=== PATIENT | female | born 1940 | race Caucasian/White ===

== ENCOUNTER 2018-07-07 00:04 | Emergency (ER) | payer MEDICARE ==
[2018-07-07 00:15] VITALS: BP 136/97
--- NOTE | 2018-07-07 00:24 | EDM.PDOC ---
ED HPI GENERAL MEDICAL PROBLEM - General Chief Complaint: Gastrointestinal Problem Stated Complaint: POSSIBLE RECTAL BLEEDING Time Seen by Provider: 07/07/18 01:00 - History of Present Illness INITIAL COMMENTS - FREE TEXT/NARRATIVE: HISTORY AND PHYSICAL: History of present illness: Patient is 77-year-old white female presents with rectal bleeding she's had this problem intermittently in the past and does have history of hemorrhoids. She states this was more in the last 24 hours she denies dizziness chest pain shortness of breath or other concern Review of systems: As per history of present illness and below otherwise all systems reviewed and negative. Past medical history: As per history of present illness and as reviewed below otherwise noncontributory. Surgical history: As per history of present illness and as reviewed below otherwise noncontributory. Social history: No reported history of drug or alcohol abuse. Family history: As per history of present illness and as reviewed below otherwise noncontributory. Physical exam: HEENT: Atraumatic, normocephalic, pupils reactive, negative for conjunctival pallor or scleral icterus, mucous membranes moist, throat clear, neck supple, nontender, trachea midline. Lungs: Clear to auscultation, breath sounds equal bilaterally, chest nontender. Heart: S1S2, regular, negative for clicks, rubs, or JVD. Abdomen: Soft, nondistended, nontender. Negative for masses or hepatosplenomegaly. Negative for costovertebral tenderness. Pelvis: Stable nontender. Genitourinary: Deferred. Rectal: fairly large external hemorrhoids with erythema and evidence of recent bleedingExtremities: Atraumatic, negative for cords or calf pain. Neurovascular unremarkable. Neuro: Awake, alert, oriented. Cranial nerves II through XII unremarkable. Cerebellum unremarkable. Motor and sensory unremarkable throughout. Exam nonfocal. Diagnostics: CBC CMP PT/INR CT abdomen and pelvis Therapeutics: None Impression: #1 rectal bleeding #2 hemorrhoids Definitive disposition and diagnosis as appropriate pending reevaluation and review of above. abdominal Pain Score (Numeric/FACES): 2 - Related Data Allergies Allergy/AdvReac Type Severity Reaction Status Date / Time iodine Allergy Rash Verified 07/07/18 00:15 Sulfa (Sulfonamide Allergy Rash Verified 07/07/18 00:15 Antibiotics) Home Meds: Home Meds Metoprolol Tartrate 100 mg PO BID 11/24/15 [History] Multivit-Min/FA/Lycopene/Lut [Centrum Silver Tablet] 1 each PO DAILY 11/24/15 [ History] metOLazone [Metolazone] 5 mg PO DAILY 11/24/15 [History] Acetaminophen [Masophen] 1,000 mg PO Q6HR PRN 07/07/18 [History] Calcium Carbonate [Calcium] 600 mg PO DAILY 07/07/18 [History] Clopidogrel [Plavix] 75 mg PO DAILY 07/07/18 [History] Losartan [Cozaar] 100 mg PO DAILY 07/07/18 [History] Melatonin 10 mg PO BEDTIME PRN 07/07/18 [History] Pantoprazole [ProTONIX] 40 mg PO DAILY 07/07/18 [History] Simvastatin [Zocor] 40 mg PO BEDTIME 07/07/18 [History] Past Medical History HEENT History: Reports: Impaired Vision, Other (See Below) Other HEENT History: wears eyeglasses Cardiovascular History: Reports: High Cholesterol, Hypertension Gastrointestinal History: Reports: None Genitourinary History: Reports: None 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: Musculoskeletal History: Reports: Osteoarthritis, Other (See Below) Other Musculoskeletal History: fx pelvis, no surgery done Neurological History: Reports: Brain Injury, Other (See Below) Other Neuro History: stroke in 2010 - Past Surgical History HEENT Surgical History: Reports: Adenoidectomy, Tonsillectomy Cardiovascular Surgical History: Reports: None GI Surgical History: Reports: Appendectomy, Cholecystectomy Female Surgical History: Reports: Hysterectomy Neurological Surgical History: Reports: None Musculoskeletal Surgical History: Reports: None Social & Family History - Family History Family Medical History: Noncontributory - Tobacco Use Smoking Status *Q: Never Smoker Second Hand Smoke Exposure: No - Caffeine Use Caffeine Use: Reports: Coffee - Recreational Drug Use Recreational Drug Use: No ED ROS GENERAL - Review of Systems Review Of Systems: ROS reveals no pertinent complaints other than HPI. ED EXAM, GENERAL - Physical Exam Exam: See Below (See dictation) Course - Vital Signs Last Recorded V/S: Last Vital Signs Temp 36.4 C 07/07/18 00:07 Pulse 76 07/07/18 00:07 Resp 20 07/07/18 00:07 BP 136/97 H 07/07/18 00:07 Pulse Ox 95 07/07/18 00:07 - Orders/Labs/Meds Labs: Laboratory Tests 07/07/18 07/07/18 07/07/18 Range/Units 00:18 00:18 00:18 WBC 5.77 (4.0-11.0) K/uL RBC 3.98 L (4.30-5.90) M/uL Hgb 11.2 L (12.0-16.0) g/dL Hct 33.8 L (36.0-46.0) % MCV 84.9 (80.0-98.0) fL MCH 28.1 (27.0-32.0) pg MCHC 33.1 (31.0-37.0) g/dL RDW Std Deviation 42.3 (28.0-62.0) fl RDW Coeff of Racquel 14 (11.0-15.0) % Plt Count 223 (150-400) K/uL MPV 8.50 (7.40-12.00) fL Neut % (Auto) 64.3 (48.0-80.0) % Lymph % (Auto) 25.8 (16.0-40.0) % Imperial % (Auto) 8.0 (0.0-15.0) % Eos % (Auto) 1.7 (0.0-7.0) % Baso % (Auto) 0.2 (0.0-1.5) % Neut # (Auto) 3.7 (1.4-5.7) K/uL Lymph # (Auto) 1.5 (0.6-2.4) K/uL Imperial # (Auto) 0.5 (0.0-0.8) K/uL Eos # (Auto) 0.1 (0.0-0.7) K/uL Baso # (Auto) 0.0 (0.0-0.1) K/uL Nucleated RBC % 0.0 /100WBC Nucleated RBCs # 0 K/uL INR 0.96 Sodium 138 (136-145) mmol/L Potassium 3.4 L (3.5-5.1) mmol/L Chloride 98 (98-107) mmol/L Carbon Dioxide 30.2 (21.0-32.0) mmol/L BUN 12 (7.0-18.0) mg/dL Creatinine 1.2 H (0.6-1.0) mg/dL Est Cr Clr Drug Dosing 32.83 mL/min Estimated GFR (MDRD) 43.3 ml/min Glucose 145 H (74-106) mg/dL Calcium 8.6 (8.5-10.1) mg/dL Total Bilirubin 0.3 (0.2-1.0) mg/dL AST 11 L (15-37) IU/L ALT 14 (14-63) IU/L Alkaline Phosphatase 74 (46-116) U/L Total Protein 7.0 (6.4-8.2) g/dL Albumin 3.5 (3.4-5.0) g/dL Globulin 3.5 (2.6-4.0) g/dL Albumin/Globulin Ratio 1.0 (0.9-1.6) Meds: Medications Discontinued Medications Generic Name Dose Route Start Last Admin Trade Name Freq PRN Reason Stop Dose Admin Hydrocortisone 30 gm 07/07/18 01:27 07/07/18 01:28 Proctozone-Hc 2.5% [facility] 07/07/18 01:28 30 gm ONETIME ONE Administration Departure - Departure Time of Disposition: 00:23 Disposition: Home, Self-Care 01 Condition: Good Clinical Impression: Rectal bleeding, Hemorrhoids - Discharge Information Instructions: Hemorrhoids, [id number], Rectal Bleeding, [id number] Referrals: PCP,None [Primary Care Provider] - Forms: ED Department Discharge Additional Instructions: The following information is given to patients seen in the emergency department who are being discharged to home. This information is to outline your options for follow-up care. We provide all patients seen in our emergency department with a follow-up referral. The need for follow-up, as well as the timing and circumstances, are variable depending upon the specifics of your emergency department visit. If you don't have a primary care physician on staff, we will provide you with a referral. We always advise you to contact your personal physician following an emergency department visit to inform them of the circumstance of the visit and for follow-up with them and/or the need for any referrals to a consulting specialist. The emergency department will also refer you to a specialist when appropriate. This referral assures that you have the opportunity for followup care with a specialist. All of these measure are taken in an effort to provide you with optimal care, which includes your followup. Under all circumstances we always encourage you to contact your private physician who remains a resource for coordinating your care. When calling for followup care, please make the office aware that this follow-up is from your recent emergency room visit. If for any reason you are refused follow-up, please contact the [facility] emergency department at and asked to speak to the emergency department charge nurse. [facility] - General Surgery Professional Building [address] [place] [address], [address] [place] [address] Anusol HC suppositories and ointment as directed: Schedule appointment with general surgery and private medical doctor return as needed as discussed
[2018-07-07] MEDS ORDERED: Hydrocortisone 2.5% Crm 30 GM Tube TOP STA (01:09)
--- NOTE | 2018-07-07 01:14 | CT ---
Indication: Rectal bleeding. Technique: Multiple contiguous axial images were obtained from the lung bases through the symphysis pubis without intravenous contrast enhancement. Please note that all CT scans at this facility use dose modulation, iterative reconstruction, and/or weight-based dosing when appropriate to reduce radiation dose to as low as reasonably achievable. Comparison: None Findings: The lung bases are clear. The heart is normal in size. Coronary artery calcifications are identified. The unenhanced liver, spleen, pancreas, adrenals, and kidneys are normal. No intrahepatic biliary ductal dilatation is identified. A right renal cyst is identified. Postsurgical changes of cholecystectomy are identified. In the pelvis, the urinary bladder is grossly normal. No uterus is identified. The small and large bowel are normal in caliber. Immediately posterior to the stomach, at the level just inferior to the left hemidiaphragm, and air-filled structure is identified. This is best seen on images number [id number], series 201, and 67-74, coronal series 203. This is felt to most likely represent a gastric diverticulum. However, other etiologies cannot be completely excluded. If the patient has clinical symptoms in the left upper quadrant, then it may be of benefit to have the patient drink oral contrast and repeat a CT scan of the upper abdomen. No free air or free fluid is identified within the abdomen or pelvis. Degenerative changes of the spine are seen. No lytic or blastic lesions are identified. Impression: Air-filled structure identified immediately adjacent to the stomach posteriorly. This may represent a gastric diverticulum. If further evaluation is warranted, consideration could be given to having the patient ingested oral contrast and then after repeat the CT scan of the upper abdomen. These findings were discussed with Dr. Alford at the time of this dictation. Please note that all CT scans at this facility use dose modulation, iterative reconstruction, and/or weight-based dosing when appropriate to reduce radiation dose to as low as reasonably achievable. Dictated by Martha Barnett MD @ Jul 07 2018 12:54AM Signed by Dr. Martha Barnett @ Jul 07 2018 1:13AM
[2018-07-07] MEDS ORDERED: Hydrocortisone 2.5% Crm 30 GM Tube TOP ONE (01:27)
== END 2018-07-07 02:00 | disposition home or self-care (01) ==
LOC: MW.ED 00:04
DX: K64.9 Unspecified hemorrhoids (principal); K62.5 Hemorrhage of anus and rectum; E78.00 Pure hypercholesterolemia, unspecified; I10 Essential (primary) hypertension; Z88.2 Allergy status to sulfonamides; Z79.899 Other long term (current) drug therapy
CPT/HCPCS: 36415; 74176; 80053; 85025; 85610; 99284; A9270; 99283

== ENCOUNTER 2018-10-29 01:46 | Emergency (ER) | payer MEDICARE ==
[2018-10-29] MEDS ORDERED: LORazepam 2 MG/ML SDV IVPUSH ONE (01:52)
[2018-10-29] MEDS ORDERED: Aspirin 81 MG Tab.Chew PO ONE (01:52)
--- NOTE | 2018-10-29 01:55 | EDM.PDOC ---
ED HPI GENERAL MEDICAL PROBLEM - General Stated Complaint: TROUBLE BREATHING Time Seen by Provider: 10/29/18 01:54 Source of Information: Reports: Patient - History of Present Illness INITIAL COMMENTS - FREE TEXT/NARRATIVE: HISTORY AND PHYSICAL: History of present illness: [Patient with anxiety and panic history presents with anxiety and panic, her main complaint is throat closing sensation however her airway is completely open his no lip swelling tongue swelling or pharyngeal edema no stridor breathing is nonlabored she appears quite comfortable S whatsoever not associated with diaphoresis visible shortness of breath accessory muscle usage like no pain no radiation arm neck or jaw ] Review of systems: As per history of present illness and below otherwise all systems reviewed and negative. Past medical history: As per history of present illness and as reviewed below otherwise noncontributory. Surgical history: As per history of present illness and as reviewed below otherwise noncontributory. Social history: No reported history of drug or alcohol abuse. Family history: As per history of present illness and as reviewed below otherwise noncontributory. Physical exam: HEENT: Atraumatic, normocephalic, pupils reactive, negative for conjunctival pallor or scleral icterus, mucous membranes moist, throat clear, neck supple, nontender, trachea midline. Lungs: Clear to auscultation, breath sounds equal bilaterally, chest nontender. Heart: S1S2, regular, negative for clicks, rubs, or JVD. Abdomen: Soft, nondistended, nontender. Negative for masses or hepatosplenomegaly. Negative for costovertebral tenderness. Pelvis: Stable nontender. Genitourinary: Deferred. Rectal: Deferred. Extremities: Atraumatic, negative for cords or calf pain. Neurovascular unremarkable. Neuro: Awake, alert, oriented. Cranial nerves II through XII unremarkable. Cerebellum unremarkable. Motor and sensory unremarkable throughout. Exam nonfocal. Diagnostics: [CBC CMP UA INR troponin CPK EKG Chest 1 view ] Therapeutics: [ aspirin 324 mg chewable Ativan 0.5 mg IV Ativan 0.5 mg by mouth twice a day #10 no refill Patient offered observation admission But refused ] Impression: [ anxiety/panic ] Definitive disposition and diagnosis as appropriate pending reevaluation and review of above. headache-sinus Pain Score (Numeric/FACES): 4 - Related Data Allergies Allergy/AdvReac Type Severity Reaction Status Date / Time iodine Allergy Rash Verified 07/07/18 00:15 Sulfa (Sulfonamide Allergy Rash Verified 07/07/18 00:15 Antibiotics) Home Meds: Home Meds Metoprolol Tartrate 100 mg PO BID 11/24/15 [History] Multivit-Min/FA/Lycopene/Lut [Centrum Silver Tablet] 1 each PO DAILY 11/24/15 [ History] metOLazone [Metolazone] 5 mg PO DAILY 11/24/15 [History] Acetaminophen [Masophen] 1,000 mg PO Q6HR PRN 07/07/18 [History] Calcium Carbonate [Calcium] 600 mg PO DAILY 07/07/18 [History] Clopidogrel [Plavix] 75 mg PO DAILY 07/07/18 [History] Losartan [Cozaar] 100 mg PO DAILY 07/07/18 [History] Melatonin 10 mg PO BEDTIME PRN 07/07/18 [History] Pantoprazole [ProTONIX] 40 mg PO DAILY 07/07/18 [History] Simvastatin [Zocor] 40 mg PO BEDTIME 07/07/18 [History] hydrOXYzine pamoate [Hydroxyzine Pamoate] 25 mg PO ASDIRECTED PRN 10/29/18 [ History] Past Medical History HEENT History: Reports: Impaired Vision, Other (See Below) Other HEENT History: wears eyeglasses Cardiovascular History: Reports: High Cholesterol, Hypertension Gastrointestinal History: Reports: None Genitourinary History: Reports: None 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: Musculoskeletal History: Reports: Osteoarthritis, Other (See Below) Other Musculoskeletal History: fx pelvis, no surgery done Neurological History: Reports: Brain Injury, Other (See Below) Other Neuro History: stroke in 2010 - Past Surgical History HEENT Surgical History: Reports: Adenoidectomy, Tonsillectomy Cardiovascular Surgical History: Reports: None GI Surgical History: Reports: Appendectomy, Cholecystectomy Female Surgical History: Reports: Hysterectomy Neurological Surgical History: Reports: None Musculoskeletal Surgical History: Reports: None Social & Family History - Family History Family Medical History: Noncontributory - Caffeine Use Caffeine Use: Reports: Coffee ED ROS GENERAL - Review of Systems Review Of Systems: See Below ED EXAM, GENERAL - Physical Exam Exam: See Below Course - Vital Signs Last Recorded V/S: Last Vital Signs Temp 96.6 F 10/29/18 01:54 Pulse 59 L 10/29/18 02:38 Resp 14 10/29/18 02:38 BP 156/73 H 10/29/18 02:38 Pulse Ox 96 10/29/18 02:38 - Orders/Labs/Meds Orders: Active Orders 24 hr Category Date Time Status EKG Documentation Completion [RC] AM Care 10/29/18 01:52 Active UA RFX STEPHANIE AND CULT IF INDIC [URIN] Stat Lab 10/29/18 01:52 Ordered Labs: Laboratory Tests 10/29/18 10/29/18 10/29/18 Range/Units 02:05 02:05 02:05 WBC 7.49 (4.0-11.0) K/uL RBC 4.52 (4.30-5.90) M/uL Hgb 12.1 (12.0-16.0) g/dL Hct 37.1 (36.0-46.0) % MCV 82.1 (80.0-98.0) fL MCH 26.8 L (27.0-32.0) pg MCHC 32.6 (31.0-37.0) g/dL RDW Std Deviation 41.5 (28.0-62.0) fl RDW Coeff of Racquel 14 (11.0-15.0) % Plt Count 247 (150-400) K/uL MPV 8.40 (7.40-12.00) fL Neut % (Auto) 70.0 (48.0-80.0) % Lymph % (Auto) 21.2 (16.0-40.0) % Geary % (Auto) 6.8 (0.0-15.0) % Eos % (Auto) 1.7 (0.0-7.0) % Baso % (Auto) 0.3 (0.0-1.5) % Neut # (Auto) 5.2 (1.4-5.7) K/uL Lymph # (Auto) 1.6 (0.6-2.4) K/uL Geary # (Auto) 0.5 (0.0-0.8) K/uL Eos # (Auto) 0.1 (0.0-0.7) K/uL Baso # (Auto) 0.0 (0.0-0.1) K/uL Nucleated RBC % 0.0 /100WBC Nucleated RBCs # 0 K/uL INR 0.97 Sodium 132 L (136-145) mmol/L Potassium 3.3 L (3.5-5.1) mmol/L Chloride 90 L (98-107) mmol/L Carbon Dioxide 29.2 (21.0-32.0) mmol/L BUN 10 (7.0-18.0) mg/dL Creatinine 1.3 H (0.6-1.0) mg/dL Est Cr Clr Drug Dosing 29.80 mL/min Estimated GFR (MDRD) 39.4 ml/min Glucose 132 H (74-106) mg/dL Calcium 9.7 (8.5-10.1) mg/dL Total Bilirubin 0.4 (0.2-1.0) mg/dL AST 16 (15-37) IU/L ALT 20 (14-63) IU/L Alkaline Phosphatase 86 (46-116) U/L Creatine Kinase 53 (26-308) U/L Troponin I < 0.050 (0.000-0.056) ng/mL Total Protein 7.6 (6.4-8.2) g/dL Albumin 3.9 (3.4-5.0) g/dL Globulin 3.7 (2.6-4.0) g/dL Albumin/Globulin Ratio 1.1 (0.9-1.6) Meds: Medications Discontinued Medications Generic Name Dose Route Start Last Admin Trade Name Freq PRN Reason Stop Dose Admin Aspirin 324 mg 10/29/18 01:52 10/29/18 02:19 Aspirin PO 10/29/18 01:53 Not Given ONETIME ONE Lorazepam 0.5 mg 10/29/18 01:52 10/29/18 02:22 Ativan IVPUSH 10/29/18 01:53 0.5 mg ONETIME ONE Administration Potassium Chloride 10 meq 10/29/18 02:58 10/29/18 03:07 Klor-Con 10 PO 10/29/18 02:59 Not Given ONETIME ONE Potassium Chloride 10 meq 10/29/18 03:05 10/29/18 03:16 Klor-Con M20 PO 10/29/18 03:06 10 meq ONETIME ONE Administration Departure - Departure Time of Disposition: 03:27 Disposition: Home, Self-Care 01 Condition: Good Clinical Impression: Panic disorder [episodic paroxysmal anxiety] - Discharge Information Referrals: Evan Floyd MD [Primary Care Provider] - Additional Instructions: The following information is given to patients seen in the emergency department who are being discharged to home. This information is to outline your options for follow-up care. We provide all patients seen in our emergency department with a follow-up referral. The need for follow-up, as well as the timing and circumstances, are variable depending upon the specifics of your emergency department visit. If you don't have a primary care physician on staff, we will provide you with a referral. We always advise you to contact your personal physician following an emergency department visit to inform them of the circumstance of the visit and for follow-up with them and/or the need for any referrals to a consulting specialist. The emergency department will also refer you to a specialist when appropriate. This referral assures that you have the opportunity for follow-up care with a specialist. All of these measure are taken in an effort to provide you with optimal care, which includes your follow-up. Under all circumstances we always encourage you to contact your private physician who remains a resource for coordinating your care. When calling for follow-up care, please make the office aware that this follow-up is from your recent emergency room visit. If for any reason you are refused follow-up, please contact the [facility] emergency department at and asked to speak to the emergency department charge nurse. - My Orders Last 24 Hours: My Active Orders 10/29/18 01:52 EKG Documentation Completion [RC] AM UA RFX STEPHANIE AND CULT IF INDIC [URIN] Stat - Assessment/Plan Last 24 Hours: My Active Orders 10/29/18 01:52 EKG Documentation Completion [RC] AM UA RFX STEPHANIE AND CULT IF INDIC [URIN] Stat
[2018-10-29 02:32] LABS: CHLORIDE,CL 90 mmol/L (98-107); SODIUM,NA 132 mmol/L (136-145)
--- NOTE | 2018-10-29 02:43 | CR ---
INDICATION: Chest pain TECHNIQUE: Chest 1 view COMPARISON: None FINDINGS: Cardiovascular and mediastinum: Upper normal heart size with mild aortic tortuosity and atherosclerotic calcification. Lungs and pleural spaces: Hypoaeration without pleural effusion or pneumothorax. No focal consolidation. Bones and soft tissues: No significant findings. IMPRESSION: No acute or significant findings. Dictated by Dale Johnson MD @ Oct 29 2018 2:40AM Signed by Dr. Dale Johnson @ Oct 29 2018 2:41AM
[2018-10-29] MEDS ORDERED: Potassium Chloride 10 MEQ Tab.ER PO ONE (02:58)
[2018-10-29] MEDS ORDERED: Potassium Chloride 20 MEQ Tab.ER PO ONE (03:05)
[2018-10-29 03:53] VITALS: BP 146/84
== END 2018-10-29 03:50 | disposition home or self-care (01) ==
LOC: MW.ED 01:46
DX: F41.0 Panic disorder [episodic paroxysmal anxiety] (principal); I10 Essential (primary) hypertension; E78.00 Pure hypercholesterolemia, unspecified; Z88.2 Allergy status to sulfonamides; Z91.09 Other allergy status, other than to drugs and biological substances; Z79.899 Other long term (current) drug therapy
CPT/HCPCS: 36415; 71045; 80053; 82550; 84484; 85025; 85610; 93005; 96374; 99284; A9270; J2060

== ENCOUNTER 2020-04-24 21:26 | Emergency (ER) | payer MEDICARE ==
[2020-04-24] MEDS ORDERED: Acetaminophen 500 MG Tab PO ONE (21:34)
[2020-04-24] MEDS ORDERED: Diphtheria,Pertussis(Acell),Tetanus Vaccine 0.5 ML Syringe IM ONE (21:36)
[2020-04-24] MEDS ORDERED: Octyl 2-Cyanoacrylate 1 Tube TOP ONE (21:36)
[2020-04-24] MEDS ORDERED: Ondansetron 4 MG/2 ML SDV IVPUSH ONE (21:50)
[2020-04-24] MEDS ORDERED: Ondansetron 4 MG Tab.DIS PO ONE (21:54)
[2020-04-24] MEDS ORDERED: Ondansetron 4 MG Tab.DIS ONE (21:55)
--- NOTE | 2020-04-24 22:06 | EDM.PDOC ---
ED HPI GENERAL MEDICAL PROBLEM - General Chief Complaint: Trauma Stated Complaint: SORE SPOTS, SCRATCH ON LT ARM Time Seen by Provider: 04/24/20 21:30 - History of Present Illness INITIAL COMMENTS - FREE TEXT/NARRATIVE: HISTORY AND PHYSICAL: History of present illness: This is an 79-year-old female with a history significant for hypertension, CVA, on Plavix, who presents to the ER today secondary to a fall. Patient reports t hat she was transferring utilizing her wheelchair and walker to the commode and tripped and fell down and injured her left side. Patient reports that she is got minimal discomfort to her left upper extremity except for a skin tear to her left mid forearm. Patient denies any head trauma or loss of consciousness. Patient reports that she twisted her neck during the fall and has some discomfort to her neck region. Patient denies any nausea, vomiting, diarrhea, dysuria, frequency, urgency, chest pain, shortness of breath, dizziness, presyncope, weakness to her upper or lower extremities. Patient denies any pain to any of her joints or extremities after the fall. Patient's tetanus status is not up-to-date. Review of systems: As per history of present illness and below otherwise all systems reviewed and negative. Past medical history: As per history of present illness and as reviewed below otherwise noncontributory. Surgical history: As per history of present illness and as reviewed below otherwise noncontributory. Social history: No reported history of drug or alcohol abuse. Family history: As per history of present illness and as reviewed below otherwise noncontributory. Physical exam: Constitutional: Patient is oriented to person, place, and time. Appears well- developed and well-nourished. No distress. HEENT: Moist mucous membranes Head: Normocephalic and atraumatic Eyes: Right eye exhibits no discharge. Left eye exhibits no discharge. No scleral icterus Neck: Normal range of motion. No tracheal deviation present. Cardiovascular: Normal rate and regular rhythm. Pulmonary: Effort normal, no respiratory distress. Abdominal: No distention Musculoskeletal: Normal range of motion. Patient with a 6 cm skin tear to her left mid forearm. Neurovascularly intact otherwise. Neurologic: Alert and oriented to person, place and time. Skin: [place], warm and dry. Psychiatric: Normal mood and affect. Behavior is normal. Judgment and thought content normal. Nursing note and vital signs have been reviewed This patient was seen and evaluated during the 2019 SARS-CoV-2 novel coronavirus pandemic period. Community viral transmission is ongoing at time of this encounter and the emergency department is operating under pandemic response procedures. Patient has no C-spine T-spine or L-spine tenderness to palpation. Patient has no left upper or right upper quadrant tenderness to palpation. Patient has no crepitus to palpation to the anterior chest wall. Patient is neurologically intact. Patient does not present with any signs or or symptoms that would be consistent with acute intracranial, intra-abdominal, intrathoracic, or long bone injury. All long bones have been palpated and range of motion been performed and there is no evidence of any acute pathology. Diagnostics: CT head and cervical spine reveals no acute intracranial bleed or cervical pathology. Therapeutics: Tylenol 1 g p.o. Zofran 4 mg ODT Assessment and plan: This is an 79-year-old female who presents ER today secondary to a recent fall and injury to her left arm. Patient reports that she twisted her neck during the fall and has pain to her left lateral neck. Patient has no bony tenderness throughout her body. All bones of been palpated and no deformity has been identified. Patient's CT head and C-spine are both negative for acute pathology. While in the ED patient did have one episode of emesis, so CT scan of the head has been obtained to rule out concussion. Patient was given Zofran 4 mg ODT with significant improvement in her nausea. Procedure: Dermabond see procedure note Reassessment at the time of disposition demonstrates that the patient is in no acute distress. The patient has remained stable throughout the entire ED visit and is without objective evidence for acute process requiring urgent intervention or hospitalization. The patient is stable for discharge, counseling is provided as documented above, discussed symptomatic treatment and specific conditions for return. I have spoken with the patient/caregiver and discussed todays findings, in addition to providing specific details for the plan of care. Questions are answered and there is agreement with the plan. Definitive disposition and diagnosis as appropriate pending reevaluation and review of above. Neck Pain Score (Numeric/FACES): 8 - Related Data Allergies Allergy/AdvReac Type Severity Reaction Status Date / Time iodine Allergy Rash Verified 04/24/20 22:08 Sulfa (Sulfonamide Allergy Rash Verified 04/24/20 22:08 Antibiotics) Home Meds: Home Meds Metoprolol Tartrate 100 mg PO BID 11/24/15 [History] Multivit-Min/FA/Lycopen/Lutein [Centrum Silver Tablet] 1 each PO DAILY 11/24/15 [History] metOLazone [Metolazone] 5 mg PO DAILY 11/24/15 [History] Acetaminophen [Masophen] 1,000 mg PO Q6HR PRN 07/07/18 [History] Calcium Carbonate [Calcium] 600 mg PO DAILY 07/07/18 [History] Clopidogrel [Plavix] 75 mg PO DAILY 07/07/18 [History] Losartan [Cozaar] 100 mg PO DAILY 07/07/18 [History] Melatonin 10 mg PO BEDTIME PRN 07/07/18 [History] Pantoprazole [ProTONIX] 40 mg PO DAILY 07/07/18 [History] Simvastatin [Zocor] 40 mg PO BEDTIME 07/07/18 [History] Past Medical History HEENT History: Reports: Impaired Vision, Other (See Below) Other HEENT History: wears eyeglasses Cardiovascular History: Reports: High Cholesterol, Hypertension Respiratory History: Reports: None Gastrointestinal History: Reports: None Genitourinary History: Reports: None 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: Musculoskeletal History: Reports: Osteoarthritis, Other (See Below) Other Musculoskeletal History: fx pelvis, no surgery done Neurological History: Reports: Brain Injury, Other (See Below) Other Neuro History: stroke in 2010 Psychiatric History: Reports: Panic Attack Endocrine/Metabolic History: Reports: None Hematologic History: Reports: None Immunologic History: Reports: None Oncologic (Cancer) History: Reports: None Dermatologic History: Reports: None - Past Surgical History HEENT Surgical History: Reports: Adenoidectomy, Tonsillectomy Cardiovascular Surgical History: Reports: None GI Surgical History: Reports: Appendectomy, Cholecystectomy Female Surgical History: Reports: Hysterectomy Neurological Surgical History: Reports: None Musculoskeletal Surgical History: Reports: None Social & Family History - Family History Family Medical History: No Pertinent Family History - Caffeine Use Caffeine Use: Reports: Coffee Review of Systems - Review of Systems Review Of Systems: See Below ED EXAM, GENERAL - Physical Exam Exam: See Below ED TRAUMA PROCEDURES - Laceration/Wound Repair Left Distal Arm Lac/Wound Length In cm: 6 Appearance: Subcutaneous, Irregular Distal NVT: Neuro & Vascular Intact Saline Irrigation (cc's): 100 Exploration/Debridement/Repair: Wound Explored, In a Bloodless Field Closed With: Dermabond Course - Vital Signs Last Recorded V/S: Last Vital Signs Temp 97.7 F 04/24/20 21:28 Pulse 66 04/24/20 22:34 Resp 18 04/24/20 22:34 BP 161/80 H 04/24/20 22:34 Pulse Ox 94 L 04/24/20 22:34 - Orders/Labs/Meds Meds: Medications Discontinued Medications Generic Name Dose Route Start Last Admin Trade Name Julianne PRN Reason Stop Dose Admin Acetaminophen 1,000 mg 04/24/20 21:34 04/24/20 21:59 Tylenol Extra Strength PO 04/24/20 21:35 1,000 mg ONETIME ONE Administration Diphtheria/Tetanus/Acell Pertussis 0.5 ml 04/24/20 21:36 04/24/20 21:59 Boostrix IM 04/24/20 21:37 0.5 ml .ONCE ONE Administration Octyl Cyanoacrylate 1 applic 04/24/20 21:36 04/24/20 22:00 Dermabond Advance TOP 04/24/20 21:37 1 applic ONETIME ONE Administration Ondansetron HCl 4 mg 04/24/20 21:50 04/24/20 21:58 Zofran IVPUSH 04/24/20 21:51 Not Given ONETIME ONE Ondansetron HCl 4 mg 04/24/20 21:54 04/24/20 22:00 Zofran Odt PO 04/24/20 21:55 4 mg ONETIME ONE Administration Ondansetron HCl Confirm 04/24/20 21:55 04/24/20 22:01 Zofran Odt Administered 04/24/20 21:56 Not Given Dose 4 mg .ROUTE .STK-MED ONE Departure - Departure Time of Disposition: 22:05 Disposition: Home, Self-Care 01 Condition: Good Clinical Impression: Fall in elderly patient, Neck pain on left side Skin tear of left forearm without complication Qualifiers: Encounter type: initial encounter Qualified Code(s): S51.812A - Laceration without foreign body of left forearm, initial encounter Nausea & vomiting Qualifiers: Vomiting type: unspecified Vomiting Intractability: non-intractable Qualified Code(s): R11.2 - Nausea with vomiting, unspecified - Discharge Information Instructions: Skin Tear, [id number], Fall Prevention in the Home, Adult, [id number], Musculoskeletal Pain, Sutures, Joshua, or Adhesive Wound Closure Referrals: Evan Floyd MD [Primary Care Provider] - Forms: ED Department Discharge Additional Instructions: Your seen and evaluated in the ER today secondary to a fall. The CT scan of your head and neck did not reveal any acute fracture or pathology. You did have a skin tear to your left forearm that was treated with adhesive skin glue. You may wash out with mild soap and water but be gentle. Do not apply any bacitracin or Neosporin to the adhesive. Please make an appointment to follow- up with your doctor if there is any concerns regarding infection. The following information is given to patients seen in the emergency department who are being discharged to home. This information is to outline your options for follow-up care. We provide all patients seen in our emergency department with a follow-up referral. The need for follow-up, as well as the timing and circumstances, are variable depending upon the specifics of your emergency department visit. If you don't have a primary care physician on staff, we will provide you with a referral. We always advise you to contact your personal physician following an emergency department visit to inform them of the circumstance of the visit and for follow-up with them and/or the need for any referrals to a consulting specialist. The emergency department will also refer you to a specialist when appropriate. This referral assures that you have the opportunity for follow-up care with a specialist. All of these measure are taken in an effort to provide you with optimal care, which includes your follow-up. Under all circumstances we always encourage you to contact your private physician who remains a resource for coordinating your care. When calling for follow-up care, please make the office aware that this follow-up is from your recent emergency room visit. If for any reason you are refused follow-up, please contact the [facility] Emergency Department at and asked to speak to the emergency department charge nurse. [facility] [address] [place] [id number] [address] [place] [address]
--- NOTE | 2020-04-24 22:18 | CT ---
INDICATION: fall, neck pain CT HEAD WITHOUT CONTRAST TECHNIQUE: Multiple axial CT images were performed through the head without intravenous contrast administration. COMPARISON: No previous studies are currently available for comparison. FINDINGS: No acute intracranial hemorrhage is identified. No extra-axial collections are evident and there is no mass effect or midline shift. There is mild diffuse age-related brain atrophy. Ventricular size and configuration are within normal limits for the patient`s age. Plaza-white differentiation is within normal limits. There is patchy hypodensity in the periventricular white matter, a nonspecific finding which most likely reflects chronic small vessel ischemic change. Intracranial atherosclerotic vascular calcifications are noted. Osseous structures are within normal limits and no fractures are seen. Included portions of the paranasal sinuses and mastoid air cells are normally aerated. IMPRESSION: 1. No acute intracranial abnormality identified. 2. Mild age-related brain atrophy, white matter hypodensity consistent with chronic small vessel ischemic change, and intracranial atherosclerotic vascular calcifications. CHUCK COREY MD [employer] Dictated by: Anton Croey MD @ 04/24/2020 22:16:07 (Electronically Signed)
--- NOTE | 2020-04-24 22:18 | CT ---
INDICATION: fall, neck pain CT CERVICAL SPINE WITHOUT CONTRAST TECHNIQUE: Multidetector axial CT imaging was performed through the cervical spine, without contrast. Sagittal and coronal reconstructions were generated. FINDINGS: No acute fractures are identified. Multilevel degenerative change is noted in the cervical spine, including diffuse mild degenerative disc disease and scattered facet joint degenerative changes. Osseous alignment is within normal limits and no subluxation is seen. Prevertebral soft tissues are unremarkable. Included portions of the airway are within normal limits. Lung apices show nonspecific mosaic attenuation bilaterally. IMPRESSION: 1. No fracture, subluxation, or other acute finding identified. 2. Cervical spondylosis, as noted above. CHUCK COREY MD [employer] Dictated by: Anton Corey MD @ 04/24/2020 22:17:16 (Electronically Signed)
[2020-04-24 23:22] VITALS: BP 161/80; PULSE 66
== END 2020-04-24 22:41 | disposition home or self-care (01) ==
LOC: MW.ED 21:26
DX: S51.812A Laceration without foreign body of left forearm, initial encounter (principal); M54.2 Cervicalgia; R11.2 Nausea with vomiting, unspecified; E78.00 Pure hypercholesterolemia, unspecified; I10 Essential (primary) hypertension; Z23 Encounter for immunization; Z86.73 Personal history of transient ischemic attack (TIA), and cerebral infarction without residual deficits; Z88.8 Allergy status to other drugs, medicaments and biological substances; Z88.2 Allergy status to sulfonamides; Z79.02 Long term (current) use of antithrombotics/antiplatelets; Z79.899 Other long term (current) drug therapy; W01.0XXA Fall on same level from slipping, tripping and stumbling without subsequent striking against object, initial encounter; Y92.009 Unspecified place in unspecified non-institutional (private) residence as the place of occurrence of the external cause
CPT/HCPCS: 12002; 70450; 72125; 90471; 99283; A9270; 99284

== ENCOUNTER 2021-02-18 20:10 | Emergency (ER) | payer MEDICARE ==
--- NOTE | 2021-02-18 21:26 | EDM.PDOC ---
<BaljitreneaDev - Last Filed: 02/18/21 23:56> ED HPI GENERAL MEDICAL PROBLEM - General Chief Complaint: General Stated Complaint: FALL, HIT SIDE OF FACE Time Seen by Provider: 02/18/21 21:05 - Related Data Allergies Allergy/AdvReac Type Severity Reaction Status Date / Time iodine Allergy Rash Verified 02/18/21 20:20 Sulfa (Sulfonamide Allergy Rash Verified 02/18/21 20:20 Antibiotics) Home Meds: Home Meds Metoprolol Tartrate 100 mg PO BID 11/24/15 [History] Multivit-Min/FA/Lycopen/Lutein [Centrum Silver Tablet] 1 each PO DAILY 11/24/15 [History] metOLazone [Metolazone] 5 mg PO DAILY 11/24/15 [History] Acetaminophen [Masophen] 1,000 mg PO Q6HR PRN 07/07/18 [History] Calcium Carbonate [Calcium] 600 mg PO DAILY 07/07/18 [History] Clopidogrel [Plavix] 75 mg PO DAILY 07/07/18 [History] Losartan [Cozaar] 100 mg PO DAILY 07/07/18 [History] Melatonin 10 mg PO BEDTIME PRN 07/07/18 [History] Pantoprazole [ProTONIX] 40 mg PO DAILY 07/07/18 [History] Simvastatin [Zocor] 40 mg PO BEDTIME 07/07/18 [History] Course - Re-Assessments/Exams Free Text/Narrative Re-Assessment/Exam: 02/18/21 23:57 Patient does have an orbital bone fracture, nondisplaced. Recommend follow-up with dentist. Recommend follow-up with PMD. No evidence of ocular muscle entrapment. Departure - Departure Time of Disposition: 23:57 Disposition: Home, Self-Care 01 Condition: Good Clinical Impression: Facial fracture Qualifiers: Encounter type: initial encounter Facial bone/location: medial orbital wall Fracture type: closed Laterality: left Qualified Code(s): S02.832A - Fracture of medial orbital wall, left side, initial encounter for closed fracture - Discharge Information Instructions: Orbital Floor Fracture Referrals: Evan Floyd MD [Primary Care Provider] - Forms: ED Department Discharge Additional Instructions: The following information is given to patients seen in the emergency department who are being discharged to home. This information is to outline your options for follow-up care. We provide all patients seen in our emergency department with a follow-up referral. The need for follow-up, as well as the timing and circumstances, are variable depending upon the specifics of your emergency department visit. If you don't have a primary care physician on staff, we will provide you with a referral. We always advise you to contact your personal physician following an emergency department visit to inform them of the circumstance of the visit and for follow-up with them and/or the need for any referrals to a consulting specialist. The emergency department will also refer you to a specialist when appropriate. This referral assures that you have the opportunity for follow-up care with a specialist. All of these measure are taken in an effort to provide you with optimal care, which includes your follow-up. Under all circumstances we always encourage you to contact your private physician who remains a resource for coordinating your care. When calling for follow-up care, please make the office aware that this follow-up is from your recent emergency room visit. If for any reason you are refused follow-up, please contact the [facility] Emergency Department at and asked to speak to the emergency department charge nurse. Please follow up with your primary care physician. If you do not have a primary care physician, see below: [facility] [address] [place] [id number] [id number] [facility] [address] [place] [id number] <Francisca Vanegas - Last Filed: 02/19/21 14:44> ED HPI GENERAL MEDICAL PROBLEM - General Source of Information: Reports: Patient, Family History Limitations: Reports: No Limitations - History of Present Illness INITIAL COMMENTS - FREE TEXT/NARRATIVE: PEDS HISTORY AND PHYSICAL: History of present illness: Patient is an 80-year-old female presents emergency room today with her daughter for concern of left-sided facial injury that occurred approximately 2 hours prior to arrival to the emergency room. Patient and her daughter both confirm that they were walking [id number] and talking to each other. Patient does use a walker for ambulation. Daughter states that patient did not realize that that there was a down steps and ramp as they were both talking and distracted and had stepped forward and fell forward. Daughter states that she did not completely fall and hit the side of her cheek on the side of the walker. Patient states that she was too busy talking to her daughter did not realize that they were approaching the ramp. Deny any loss of consciousness. Patient states that she primarily has a tooth injury and has some swelling just above that on the side of her cheek. Patient states that since then, she has felt per her usual self and denies any vomiting or headache. [place] any other resuscitative symptom. Patient denies fever, chills, chest pain, shortness of breath, or cough. Denies headache, neck stiff ness, change in vision, syncope, or near syncope. Denies nausea, vomiting, abdominal pain, diarrhea, constipation, or dysuria. Has not noted any blood in urine or stool. Patient has been eating and drinking appropriately. Review of systems: As per history of present illness and below otherwise all systems reviewed and negative. Past medical history: As per history of present illness and as reviewed below otherwise noncontributory. Surgical history: As per history of present illness and as reviewed below otherwise noncontributory. Social history: No reported history of drug or alcohol abuse. Family history: As per history of present illness and as reviewed below otherwise noncontributory. Physical exam: General: Patient is alert, oriented, and in no acute distress. Nontoxic and no nfocal. Patient sitting comfortably on exam table. Vitals stable and reviewed by me. HEENT: Generalized poor dentition with multiple missing teeth chronically. There is a contusion of the gumline noted above tooth #11. There is also a contusion/edema of the left sided mandible with pain to palpation of this area without crepitus. Otherwise, atraumatic, normocephalic, pupils reactive, negative for conjunctival pallor or scleral icterus, mucous membranes moist, throat clear, neck supple, nontender, trachea midline. No cervical adenopathy or nuchal rigidity. Lungs: Clear to auscultation, breath sounds equal bilaterally, chest nontender. Heart: S1S2, regular rate and rhythm, no overt murmurs Abdomen: Soft, nondistended, nontender. Negative for masses or hepatosplenomegaly. Normal abdominal bowel sounds. Pelvis: Stable nontender. Genitourinary: Deferred. Rectal: Deferred. Extremities: No obvious deformity of the complete spine. No step-offs, crepitus, or point tenderness to palpation of the complete spine. Patient does have full range of motion of the complete spine without pain or difficulty. Full range of motion of all extremities upper and lower without difficulty. Otherwise, atraumatic, full range of motion without defects or deficits. Neurovascular unremarkable. Neuro: Awake, alert, and age appropriate. Cranial nerves II through XII unremarkable. Cerebellum unremarkable. Motor and sensory unremarkable throughout. Exam nonfocal. Skin: Normal turgor, no overt rash or lesions Medical Decision Making: Patient is hypertensive today 214/99. In comparison to past charting, this does not appear new and appears to be chronic. I did thoroughly discussed with patient the mechanism of her fall and states that there was no inciting dizziness or chest pain and both her and her daughter confirm that they were distracted help with holding a conversation when walking and approached a ramp that patient was not aware of was there due to distraction. Given patient's contusion to the left side of her face, will obtain a maxillofacial T CT for concern of underlying fracture. Dr. Cohen has assumed care of patient and will follow remaining diagnostics and disposition for patient. Diagnostics: Maxillofacial CT w/o cont Therapeutics: None Prescription: None Impression: Facial injury Tooth injury Plan: Definitive disposition and diagnosis as appropriate pending reevaluation and review of above. 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: Musculoskeletal History: Reports: Osteoarthritis, Other (See Below) Other Musculoskeletal History: fx pelvis, no surgery done Neurological History: Reports: Brain Injury, Other (See Below) Other Neuro History: stroke in 2010 Psychiatric History: Reports: Panic Attack Endocrine/Metabolic History: Reports: None Hematologic History: Reports: None Immunologic History: Reports: None Oncologic (Cancer) History: Reports: None Dermatologic History: Reports: None - Infectious Disease History Infectious Disease History: Reports: None - Past Surgical History Head Surgeries/Procedures: Reports: None HEENT Surgical History: Reports: Adenoidectomy, Tonsillectomy Cardiovascular Surgical History: Reports: None Respiratory Surgical History: Reports: None GI Surgical History: Reports: Appendectomy, Cholecystectomy Female Surgical History: Reports: Hysterectomy Endocrine Surgical History: Reports: None Neurological Surgical History: Reports: None Musculoskeletal Surgical History: Reports: None Oncologic Surgical History: Reports: None Dermatological Surgical History: Reports: None Social & Family History - Family History Family Medical History: No Pertinent Family History - Tobacco Use Tobacco Use Status *Q: Never Tobacco User - Caffeine Use Caffeine Use: Reports: None - Recreational Drug Use Recreational Drug Use: No ED ROS GENERAL - Review of Systems Review Of Systems: Comprehensive ROS is negative, except as noted in HPI. ED EXAM, GENERAL - Physical Exam Exam: See Below (see dictation) Course - Vital Signs Last Recorded V/S: Last Vital Signs Temp 97.1 F 02/18/21 20:20 Pulse 80 02/19/21 00:00 Resp 18 02/19/21 00:00 BP 180/100 H 02/19/21 00:00 Pulse Ox 97 02/19/21 00:00
--- NOTE | 2021-02-18 23:50 | CT ---
INDICATION: Fall with left facial trauma TECHNIQUE: CT maxillofacial without contrast. COMPARISON: None FINDINGS: Facial bones: There is a left medial orbital wall fracture. No additional fracture identified. 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 Orbits and globes: Unremarkable. Sinuses: Opacification of the left ethmoid and left maxillary sinuses. Frothy material within left sphenoid sinus. Soft tissues: Unremarkable. IMPRESSION: Left medial orbital wall fracture. No intraorbital air or hemorrhage. Left maxillary, ethmoid, and sphenoid sinus disease. Please note that all CT scans at this facility use dose modulation, iterative reconstruction, and/or weight-based dosing when appropriate to reduce radiation dose to as low as reasonably achievable. Dictated by Roselyn Shetty MD @ 02/18/2021 11:49:48 PM (Electronically Signed)
[2021-02-19 00:32] VITALS: BP 180/100; PULSE 80
== END 2021-02-19 00:05 | disposition home or self-care (01) ==
LOC: MW.ED 20:10
DX: S02.832A Fracture of medial orbital wall, left side, initial encounter for closed fracture (principal); E78.00 Pure hypercholesterolemia, unspecified; I10 Essential (primary) hypertension; Z88.2 Allergy status to sulfonamides; Z88.8 Allergy status to other drugs, medicaments and biological substances; Z79.899 Other long term (current) drug therapy; W18.39XA Other fall on same level, initial encounter
CPT/HCPCS: 70486; 70486-26; 99283-25

== ENCOUNTER 2022-09-27 09:11 | Emergency (ER) | payer MEDICARE, OTHER ==
[2022-09-27] MEDS ORDERED: LORazepam 2 MG/ML SDV IVPUSH ONE (09:31)
[2022-09-27] MEDS ORDERED: Morphine 4 MG/ML Syringe IVPUSH ONE (09:31)
[2022-09-27 11:46] VITALS: BP 162/78; PULSE 68
== END 2022-09-27 11:29 | disposition home or self-care (01) ==
LOC: MW.ED 09:11
DX: R07.89 Other chest pain (principal); M54.50 Low back pain, unspecified; E78.00 Pure hypercholesterolemia, unspecified; I10 Essential (primary) hypertension; M19.90 Unspecified osteoarthritis, unspecified site; Z88.2 Allergy status to sulfonamides; Z91.041 Radiographic dye allergy status; Z79.82 Long term (current) use of aspirin; Z79.02 Long term (current) use of antithrombotics/antiplatelets; Z79.899 Other long term (current) drug therapy
CPT/HCPCS: 71045; 96374; 96375; 99284; J2060; J2270

== ENCOUNTER 2025-03-22 02:10 | Emergency (ER) | payer MEDICARE, OTHER ==
[2025-03-22 02:38] LABS: BASOPHILS ABSOLUTE AUTO 0.04 K/uL (0.00-0.20); BASOPHILS PERCENT AUTO 0.5 % (0.0-1.0); EOSINOPHILS ABSOLUTE AUTO 0.15 K/uL (0.00-0.45); EOSINOPHILS PERCENT AUTO 1.8 % (0.0-6.0); IMMATURE GRAN ABSOLUTE AUTO 0.01 K/uL (0.00-0.05); IMMATURE GRAN PERCENT AUTO 0.1 % (0.0-0.4); LYMPHOCYTES ABSOLUTE AUTO 1.98 K/uL (1.00-4.80); LYMPHOCYTES PERCENT AUTO 24.1 % (24.0-44.0); MEAN PLATELET VOLUME 8.7 fL (9.4-12.3); MONOCYTES ABSOLUTE AUTO 0.52 K/uL (0.00-0.80); MONOCYTES PERCENT AUTO 6.3 % (0.0-8.0); NEUTROPHILS ABSOLUTE AUTO 5.53 K/uL (1.80-7.70); NEUTROPHILS PERCENT AUTO 67.2 % (41.0-71.0); NRBC ABSOLUTE 0.00 K/uL (0.00-0.02); NRBC PERCENT 0.0 /100WBC (0.0-0.2); PLATELET COUNT,PLT 259 K/uL (150-400); RED BLOOD CELL COUNT 4.77 M/uL (4.10-5.30); WHITE BLOOD CELL COUNT,WBC 8.23 K/uL (3.9-11.3)
[2025-03-22] MEDS: Metoprolol Tartrate 5 MG/5 ML SDV ONE (02:41)
[2025-03-22 02:45] LABS: INR 1.03 (0.86-1.11); PTT,PARTIAL THROMBOPLSTIN TIME 27.0 SEC (23.9-30.7)
[2025-03-22] MEDS: Metoprolol Tartrate 5 MG/5 ML SDV IVPUSH ONE ×2 (02:46→07:03)
[2025-03-22] MEDS: Diltiazem 25 MG/5 ML SDV IVPUSH ONE (02:49)
[2025-03-22 02:59] LABS: A/G RATIO 1.1 (0.9-1.6); ALANINE AMINOTRANSFERASE,ALT 14.0 IU/L (14-63); ASPARTATE AMNIOTRANSFERASE,AST 22.0 IU/L (15-37); BILIRUBIN TOTAL 0.3 mg/dL (0.2-1.0); BLOOD UREA NITROGEN,BUN 12.0 mg/dL (7.0-18.0); CARBON DIOXIDE,CO2 25.9 mmol/L (21.0-32.0); CHLORIDE,CL 99.0 mmol/L (98-107); CREATININE 1.3 mg/dL (0.6-1.0); EST CRCL DRUG DOSING (CG) 27.95 mL/min; GLUCOSE RANDOM 166.0 mg/dL (74-106); POTASSIUM,K 4.3 mmol/L (3.5-5.1); PRO B-TYPE NATRIUR PEPT,BNPPRO 1024.0 pg/mL (0-450); PROTEIN TOTAL,TP 7.6 g/dL (6.4-8.2); SODIUM,NA 138.0 mmol/L (136-145); TSH ULTRASENSITIVE 4.23 uIU/mL (0.36-3.74)
[2025-03-22 03:07] LABS: ESTIMATED GFR 40.0 mL/min (>60)
[2025-03-22] MEDS: Magnesium Sulfate 2 GM/50 mL 2 GM in Premix Bag 1 BAG IV ONE ×2 (03:21→04:30)
[2025-03-22 03:29] LABS: T4 FREE 1.08 ng/dL (0.76-1.46)
[2025-03-22] MEDS: Metoprolol Succinate 100 MG Tab.ER PO ONE (06:17)
[2025-03-22 06:21] LABS: APPEARANCE,URINE SLT CLOUDY; GLUCOSE,URINE NEGATIVE (NEGATIVE); OCCULT BLOOD,URINE NEGATIVE (NEGATIVE)
[2025-03-22 06:28] LABS: EPITHELIAL CELLS,URINE MODERATE (NONE-FEW)
[2025-03-22] MEDS: cefTRIAXone 1 GM in Water For Injection, Sterile 10 ML IVPUSH ONE (07:00)
[2025-03-22 09:09] VITALS: BP 172/104; PULSE 69
== END 2025-03-22 09:12 ==
LOC: MW.ED 02:10
DX: I48.91 Unspecified atrial fibrillation (principal); N39.0 Urinary tract infection, site not specified; R79.89 Other specified abnormal findings of blood chemistry; I10 Essential (primary) hypertension; E78.00 Pure hypercholesterolemia, unspecified; Z91.041 Radiographic dye allergy status; Z91.040 Latex allergy status; Z88.2 Allergy status to sulfonamides; Z79.899 Other long term (current) drug therapy; Z79.82 Long term (current) use of aspirin; Z90.49 Acquired absence of other specified parts of digestive tract; Z90.710 Acquired absence of both cervix and uterus
CPT/HCPCS: 36415; 71045; 80053; 81001; 83735; 83880; 84439; 84443; 84484; 85025; 85610; 85730; 87086; 93005; 96365; 96366; 96372; 96375; 96376; 99285; A9270; J0616; J0696; J1650; J3475; J7040; 93010